=== PATIENT | male | born 1965 | race Caucasian/White ===

== ENCOUNTER → 2017-10-15 | Outpatient (CLI) | payer BC ==
[~2017-10-15] MED LIST: ECOTRIN81 M1 PO; Z MELATONIN PO; Z.4.AMLODIPINE-BEN1 PO
--- NOTE | 2017-10-15 11:59 | Diagnostic Imaging Report ---
PROCEDURE: X-RAY CHEST, TWO VIEWS COMPARISON: 09/10/2014. INDICATIONS: BRONCHITIS FINDINGS: LUNGS: No consolidations or edema. PLEURA: No effusions or pneumothorax. HEART \T\ MEDIASTINUM: The heart is within normal size-limits. BONES \T\ SOFT TISSUES: No acute findings. CONCLUSION: No acute thoracic abnormality. Dictated by: Deng Lee M.D. on 10/15/2017 at 11:59 Electronically approved by: Deng Lee M.D. on 10/15/2017 at 11:59
== END ==
LOC: RAD 11:23
PROVIDERS: ATTEND Family Medicine
DX: J40 Bronchitis, not specified as acute or chronic (principal)
CPT/HCPCS: 71046

== ENCOUNTER 2018-06-19 13:57 | Emergency (ER) | payer BC ==
[~2018-06-19] VITALS: Ht 170.2 cm; Wt 106.6 kg
--- OUTSIDE RECORDS SUMMARY | 2018-06-19 14:01 | XMS REPORT ---
Author Author [facility] Address Unknown Phone Unavailable Care Team Providers Care District Representative Name Role Phone DRU JOSE Unavailable Unavailable Problems This patient has no known problems. Allergies, Adverse Reactions, Alerts This patient has no known allergies or adverse reactions. Medications This patient has no known medications. Results Test Description Test Time Test Comments Text Results Atomic Results Result Comments CHEST 2 VIEWS [place] [address] Patient Name: DEB BUTLER MR #: [id number] : 1965 Age/Sex: 52/M Req #: [id number] Adm Physician: Ordered by: DRU ARRIAGA, JOSE Gandara MD Report #: [id number] Location: [facility] Room/Bed: Procedure: [id number] DX/CHEST 2 VIEWS Exam Date: Exam Time: REPORT STATUS: Signed PROCEDURE: X-RAY CHEST, TWO VIEWS COMPARISON: 09/10/2014. INDICATIONS: BRONCHITIS FINDINGS: LUNGS: No consolidations or edema. PLEURA: No effusions or pneumothorax. HEART T MEDIASTINUM: The heart is within normal size-limits. BONES T SOFT TISSUES: No acute findings. CONCLUSION: No acute thoracic abnormality. Dictated by: Bharathi Marcos M.D. on 10/15/2017 at 11:59 Electronically approved by: Bharathi Marcos M.D. on 10/15/2017 at 11:59 Dictated By: BHARATHI MARCOS MD [id number] Transcribed By: CHRIS on 10/15/17 1159 COPY TO: JOSE GONSALES MRI SPINE LUMBAR WO [place] [address] Patient Name: DEB BUTLER MR #: [id number] : 1965 Age/Sex: 51/M Req #: [id number] Adm Physician: Ordered by: DRU ARRIAGA, JOSE Gandara MD Report #: [id number] Location: MRI Room/Bed: Procedure: [id number] MRI/MRI SPINE LUMBAR WO Exam Date: 07/10/17 Exam Time: 0845 REPORT STATUS: Signed Exam: Lumbar spine MRI without IV contrast History: Lower back pain with radiculopathy. Comparison studies: None Technique: Sagittal and axial T2 , sagittal T1 and IR, axial spin density oblique. Intravenous contrast: None Findings: Number of lumbar vertebral bodies: 5. Alignment: Normal lordosis. Mild lumbar curvature convex to the left centered at L3. Soft tissues: No T2 hyperintense inflammatory changes. Paraspinal muscles: No signal abnormalities. Well-preserved. No atrophic changes Lower thoracic cord: Normal in signal and morphology. The tip of the conus is at T12-L1. Cauda equina: No masses. No arachnoiditis. Vertebrae: No compression fractures, infection or neoplasm. Degenerative changes: L1-L2: No abnormalities L2-L3: Disc bulge results in mild right greater than left foraminal stenosis. Disc bulge abuts the Patent canal. Small extraspinal synovial cyst at the left facet without synovitis. L3-L4: Mild bilateral foraminal stenosis due to a disc bulge. Patent canal and foramina. Small bilateral synovial cysts at the facet joints without synovitis. L4-L5: Mild bilateral foraminal stenosis due to a disc bulge and mild facet arthrosis. Patent canal. Small bilateral facet effusions with small extraspinal synovial cysts with mild synovitis. L5-S1: Disc bulge slightly asymmetric to the right with small right foraminal and left subarticular annular fissures and mild facet arthrosis with mild bilateral foraminal stenosis. No significant canal stenosis. Small right extraspinal synovial cyst at the right facet. Incidental findings: Subcentimeter T2 hyperintense right inferior pole renal cyst. IMPRESSION: 1. Small annular fissures at L5-S1. 2. Mild multilevel foraminal stenosis from L2 to S1. 3. No significant lumbar canal stenosis. 4. Mild L4-L5 facet arthrosis with mild synovitis. Signed by: Dr. Bharathi Banda M.D. on 07/10/2017 5:50 PM Dictated By: BHARATHI BANDA MD 49 Transcribed By: ANDRE on 07/10/171749 COPY TO: JOSE GONSALES
[2018-06-19] MEDS ORDERED: CYCLOBENZAPRINE10 MG PO (14:30)
[2018-06-19] MEDS ORDERED: HYDROCODONE/APAP 5MG-325MG TAB PO ONE (14:30)
[2018-06-19] MEDS ORDERED: CYCLOBENZAPRINE HCL 10 MG TAB PO ONE (14:30)
[2018-06-19] MEDS ORDERED: TYLENOL WITH C1 EACH PO (14:30)
--- NOTE | 2018-06-19 15:43 | Diagnostic Imaging Report ---
Radiographs of the left elbow - 3 views HISTORY: Pain COMPARISON: None available. FINDINGS: Bones: No acute displaced fracture. Osseous alignment is within normal limits. Joints: Mild scattered degenerative change. Soft tissues: Soft tissue swelling IMPRESSION: Soft tissue swelling about the left elbow. Signed by: Dr. Beau Smiley M.D. on 06/19/2018 3:40 PM
--- NOTE | 2018-06-19 15:44 | Diagnostic Imaging Report ---
Radiographs of the right hand - 3 views HISTORY: Pain COMPARISON: None available. FINDINGS: Bones: No acute displaced fracture. Osseous alignment is within normal limits. Joints: Mild scattered degenerative change. No osseous erosion. Soft tissues: Soft tissue swelling IMPRESSION: Soft tissue swelling about the right hand Signed by: Dr. Beau Smiley M.D. on 06/19/2018 3:40 PM
--- NOTE | 2018-06-19 15:52 | Diagnostic Imaging Report ---
Radiographs of the cervical spine - 5 views with bilateral obliques. HISTORY: Pain COMPARISON: None available. FINDINGS: Bones: No acute displaced fracture. Osseous alignment is within normal limits. Joints: Mild scattered degenerative change most pronounced at C5/6. There is associated uncovertebral hypertrophy and facet arthrosis with mild bilateral neural foraminal narrowing at these levels. Soft tissues: The soft tissues appear unremarkable. IMPRESSION: No fracture or dislocation is seen about the cervical spine. Soft tissue injury and subtle fracture could be further evaluated with MRI if clinically indicated Mild scattered degenerative change most pronounced at C5/6. There is associated uncovertebral hypertrophy and facet arthrosis with mild bilateral neural foraminal narrowing at these levels. Signed by: Dr. Beau Smiley M.D. on 06/19/2018 3:49 PM
[2018-06-19] MEDS ORDERED: BACITRACIN ZINC 0.9GM TP ONE (16:00)
== END 2018-06-19 16:35 | disposition home or self-care (01) ==
LOC: ER 13:57
DX: S16.1XXA Strain of muscle, fascia and tendon at neck level, initial encounter (principal); S60.511A Abrasion of right hand, initial encounter; S50.312A Abrasion of left elbow, initial encounter; S40.811A Abrasion of right upper arm, initial encounter; S40.812A Abrasion of left upper arm, initial encounter; V53.5XXA Driver of pick-up truck or van injured in collision with car, pick-up truck or van in traffic accident, initial encounter; Y93.89 Activity, other specified; Y92.410 Unspecified street and highway as the place of occurrence of the external cause; I10 Essential (primary) hypertension; I25.2 Old myocardial infarction; Z87.891 Personal history of nicotine dependence; Z82.49 Family history of ischemic heart disease and other diseases of the circulatory system
CPT/HCPCS: 72050; 99284

== ENCOUNTER → 2019-05-21 | Outpatient (CLI) | payer BC ==
[~2019-05-21] MED LIST changes: +CYCLOBENZAPRINE10 MG PO; +TYLENOL WITH C1 EACH PO
--- NOTE | 2019-05-21 12:09 | Diagnostic Imaging Report ---
Left shoulder, 2 views. History: Left shoulder pain for one week, trauma. Findings: The soft tissues are normal. Bone mineralization is normal. AC joint widening is noted measuring 13 mm. Coracoclavicular distance is within normal limits. There is no evidence of fracture or dislocation. There are no lytic or sclerotic lesions. The glenohumeral joint is within normal limits. IMPRESSION: Findings suggestive of Grade 1 AC joint separation. Signed by: Juan Hodges on 05/21/2019 12:06 PM
== END ==
LOC: RAD 10:47
PROVIDERS: ATTEND Family Medicine
DX: M25.512 Pain in left shoulder (principal); S49.92XA Unspecified injury of left shoulder and upper arm, initial encounter

== ENCOUNTER → 2021-04-14 | Outpatient (CLI) | payer BC ==
[~2021-04-14] MED LIST changes: +LORAZEPAM INJ 2 MG/ML VIAL ONE
== END ==
LOC: MRI 11:19
PROVIDERS: ATTEND Family Medicine
DX: S46.311A Strain of muscle, fascia and tendon of triceps, right arm, initial encounter (principal)
CPT/HCPCS: 73221; J2060

== ENCOUNTER 2021-04-26 20:55 | Emergency (ER) | payer BC ==
[~2021-04-26] VITALS: Ht 170.2 cm; Wt 106.6 kg
[~2021-04-26 20:55] MED LIST changes: -ACETAMINOPHEN/CODEINE 300MG - 30MG TAB ONE; -DEXAMETHASONE SOD PHOS INJ 4 MG/ML SDV ONE; -EPHEDRINE SULFATE INJ 50 MG/ML VIAL ONE; -FENTANYL CITRATE/PF 100MCG/2 ML INJ ONE; -GLYCOPYRROLATE INJ 0.2 MG/ML VIAL ONE; -HYDROMORPHONE 1MG/1ML INJ ONE; -KETOROLAC TROMETHAMINE 30 MG/ML VIAL ONE; -LIDOCAINE HCL 2% LOCAL INJ 5 ML SDV VIAL INJ ONE; -MORPHINE SULFATE INJ 2 MG/ML SYR ONE; -NEOSTIGMINE 1 MG/ML 10ML VIAL ONE; -ONDANSETRON HCL 4 MG ORAL DISINTEGRATING TAB ONE; -ONDANSETRON HCL INJ 2MG/ML 2ML 2 MG/ML VIAL ONE; -POVIDONE IODINE 0.05% 0.05 % ML PO ONE; -PROPOFOL IV EMULSION 10 MG/ML 20 ML VIAL ONE; -ROCURONIUM BROMIDE 10 MG/ML 5ML VIAL IV ONE; -SEVOFLURANE INHAL SOLN 250 ML PEN BTL ONE; -SODIUM CHLORIDE 0.9% 50ML 100 ML ONE
[2021-04-26 21:09] LABS: BASOPHILS % 0.2 % (0.0-1.0); HEMATOCRIT 42.1 % (38.2-49.6); HEMOGLOBIN 14.3 g/dL (14.0-18.0); LYMPHOCYTES # (AUTO) 1.1 (1.0-3.2); LYMPHOCYTES % 9.2 % (18.0-39.1); MEAN CORPUSCULAR HEMOGLOBIN 29.8 pg (28-32); MEAN CORPUSCULAR VOLUME 87.7 fL (81-99); MONOCYTES # (AUTO) 0.4 (0.2-0.8); NEUTROPHILS # (AUTO) 10.2 (2.1-6.9); NEUTROPHILS % 87.1 % (38.7-80.0); PLATELET COUNT 191 x10e3/uL (140-360); RED CELL DISTRIBUTION WIDTH 11.9 % (11.7-14.4)
[2021-04-26 21:18] LABS: INR 0.93; PROTHROMBIN TIME 12.7 seconds (11.9-14.5)
[2021-04-26 21:20] LABS: PARTIAL THROMBOPLASTIN TIME 21.3 seconds (23.8-35.5)
[2021-04-26 21:28] LABS: ALBUMIN 4.1 g/dL (3.5-5.0); ALBUMIN/GLOBULIN RATIO 1.4 (0.8-2.0); CALCIUM 8.9 mg/dL (8.4-10.2); CREATININE, SERUM 1.02 mg/dL (0.72-1.25)
[2021-04-26 21:34] LABS: CREATINE KINASE MB 1.6 ng/mL (0-5.0)
[2021-04-26] MEDS ORDERED: IOPAMIDOL 370 MG/ML 200 ML INFUS..BTL INJ ONE (22:05)
[2021-04-26] MEDS ORDERED: SODIUM CHLORIDE 0.9% 50ML 50 ML ONE (22:05)
[2021-04-27 00:56] VITALS: BP 134/76
== END 2021-04-27 00:25 | disposition home or self-care (01) ==
LOC: ER 20:59
DX: J18.9 Pneumonia, unspecified organism (principal); Z98.890 Other specified postprocedural states
CPT/HCPCS: 36415; 71260; 80053; 82550; 82553; 84484; 85025; 85610; 85730; 93005; 99283; Q9967

== ENCOUNTER → 2021-04-26 | Day surgery (SDC) | payer BC ==
[2021-04-25 11:48] LABS: ANION GAP 13.8 mmol/L (8-16); CALCIUM 8.5 mg/dL (8.4-10.2); CREATININE, SERUM 0.86 mg/dL (0.72-1.25); POTASSIUM 3.8 mmol/L (3.5-5.1)
[~2021-04-26] MED LIST changes: +ACETAMINOPHEN/CODEINE 300MG - 30MG TAB ONE; +ATORVASTATIN CA20 MG PO; +DEXAMETHASONE SOD PHOS INJ 4 MG/ML SDV ONE; +EPHEDRINE SULFATE INJ 50 MG/ML VIAL ONE; +FENTANYL CITRATE/PF 100MCG/2 ML INJ ONE; +GLYCOPYRROLATE INJ 0.2 MG/ML VIAL ONE; +HYDROMORPHONE 1MG/1ML INJ ONE; +HYZAAR 100-12.1 EACH; +ISOSORBIDE DINI20 MG PO; +KETOROLAC TROMETHAMINE 30 MG/ML VIAL ONE; +LIDOCAINE HCL 2% LOCAL INJ 5 ML SDV VIAL INJ ONE; -LORAZEPAM INJ 2 MG/ML VIAL ONE; +METOPROLOL SUCC25 MG PO; +MORPHINE SULFATE INJ 2 MG/ML SYR ONE; +NEOSTIGMINE 1 MG/ML 10ML VIAL ONE; +ONDANSETRON HCL 4 MG ORAL DISINTEGRATING TAB ONE; +ONDANSETRON HCL INJ 2MG/ML 2ML 2 MG/ML VIAL ONE; +POVIDONE IODINE 0.05% 0.05 % ML PO ONE; +PROPOFOL IV EMULSION 10 MG/ML 20 ML VIAL ONE; +ROCURONIUM BROMIDE 10 MG/ML 5ML VIAL IV ONE; +SEVOFLURANE INHAL SOLN 250 ML PEN BTL ONE; +SODIUM CHLORIDE 0.9% 50ML 100 ML ONE
[2021-04-26 14:45] VITALS: BP 124/75
== END | disposition home or self-care (01) ==
LOC: OR 07:56
PROVIDERS: ATTEND Specialist
DX: S46.391A Other injury of muscle, fascia and tendon of triceps, right arm, initial encounter (principal); I10 Essential (primary) hypertension; I25.10 Atherosclerotic heart disease of native coronary artery without angina pectoris; Z95.5 Presence of coronary angioplasty implant and graft; K21.9 Gastro-esophageal reflux disease without esophagitis; R00.1 Bradycardia, unspecified; W18.39XA Other fall on same level, initial encounter; Z01.810 Encounter for preprocedural cardiovascular examination; Z01.812 Encounter for preprocedural laboratory examination; Z20.822 Contact with and (suspected) exposure to COVID-19; Z79.82 Long term (current) use of aspirin
CPT/HCPCS: 24341; 36415; 80048; 93005; J0690; J1100; J1170; J1885; J2001; J2270; J2405; J2704; J2710; J3010; Q0162; U0002

== ENCOUNTER 2021-08-04 07:44 | Outpatient (RCR) | payer BC | END 2021-08-18 | LOC: OT 07:44 → EDSTATUS 15:27 | PROVIDERS: ATTEND Specialist | DX: S46.311A Strain of muscle, fascia and tendon of triceps, right arm, initial encounter (principal) ==

== ENCOUNTER 2021-08-23 08:30 | Outpatient (RCR) | payer BC | END 2021-09-18 | LOC: OT 08:30 | PROVIDERS: ATTEND Specialist | DX: S46.311A Strain of muscle, fascia and tendon of triceps, right arm, initial encounter (principal); R53.1 Weakness ==

== ENCOUNTER 2021-11-07 06:49 | Emergency (ER) | payer BC ==
[~2021-11-07] VITALS: Ht 170.2 cm; Wt 113.4 kg
[2021-11-07] MEDS ORDERED: ACETAMINOPHEN 325 MG TAB PO ONE (07:30)
[2021-11-07] MEDS ORDERED: CEFTRIAXONE 1 GM in SODIUM CHLORIDE 0.9% 50ML 50 ML IV ONE (07:30)
[2021-11-07 07:32] LABS: BASOPHILS # (AUTO) 0.1 (0.0-0.1); BASOPHILS % 0.5 % (0.0-1.0); EOSINOPHILS # (AUTO) 0.2 (0.0-0.4); EOSINOPHILS % 1.6 % (0.0-6.0); HEMATOCRIT 47.2 % (38.2-49.6); HEMOGLOBIN 16.2 g/dL (14.0-18.0); LYMPHOCYTES # (AUTO) 0.9 (1.0-3.2); LYMPHOCYTES % 8.1 % (18.0-39.1); MEAN CORPUSCULAR HEMOGLOBIN 29.9 pg (28-32); MEAN CORPUSCULAR HGB CONC 34.3 g/dL (31-35); MEAN CORPUSCULAR VOLUME 87.1 fL (81-99); MONOCYTES % 9.5 % (4.4-11.3); NEUTROPHILS # (AUTO) 8.3 (2.1-6.9); NEUTROPHILS % 79.6 % (38.7-80.0); PLATELET COUNT 183 x10e3/uL (140-360); RED BLOOD COUNT 5.42 x10e6/uL (4.3-5.7); RED CELL DISTRIBUTION WIDTH 12.8 % (11.7-14.4)
[2021-11-07 07:38] LABS: CLARITY,URINE CLEAR (CLEAR); COLOR,URINE YELLOW (YELLOW)
[2021-11-07 07:39] LABS: KETONES,URINE NEGATIVE (NEGATIVE); LEUKOCYTE ESTERASE ,URINE NEGATIVE (NEGATIVE); NITRITE,URINE NEGATIVE (NEGATIVE); PROTEIN,URINE DIPSTICK 2+ (NEGATIVE); URINE UROBILINOGEN 0.2 mg/dL (0.2 - 1)
[2021-11-07] MEDS ORDERED: ACETAMINOPHEN 325 MG TAB ONE (07:39)
[2021-11-07] MEDS ORDERED: CEFTRIAXONE 1 GM VIAL ONE (07:39)
[2021-11-07 07:51] LABS: BACTERIA,URINE RARE /HPF; EPITHELIAL CELLS,URINE RARE /LPF; WBC,URINE (MAN) 0-5 /HPF (0-5)
[2021-11-07 08:04] LABS: ALBUMIN 3.8 g/dL (3.5-5.0); ALBUMIN/GLOBULIN RATIO 1.4 (0.8-2.0); ANION GAP 12.7 mmol/L (8-16); CALCIUM 8.4 mg/dL (8.4-10.2); CREATININE, SERUM 0.94 mg/dL (0.72-1.25); POTASSIUM 3.7 mmol/L (3.5-5.1)
[2021-11-07] MEDS ORDERED: PHENAGIL TABLE1 EACH PO (09:14)
[2021-11-07] MEDS ORDERED: NAPROXEN250 MG PO (09:14)
[2021-11-07] MEDS ORDERED: TYLENOL325 MG PO (09:14)
[2021-11-07 09:35] VITALS: BP 119/52
== END 2021-11-07 09:36 | disposition home or self-care (01) ==
LOC: ER 07:37
DX: R50.9 Fever, unspecified (principal); A41.89 Other specified sepsis; R65.20 Severe sepsis without septic shock; J10.1 Influenza due to other identified influenza virus with other respiratory manifestations; I10 Essential (primary) hypertension; Z20.822 Contact with and (suspected) exposure to COVID-19; E78.5 Hyperlipidemia, unspecified; I25.10 Atherosclerotic heart disease of native coronary artery without angina pectoris; I25.2 Old myocardial infarction; Z95.5 Presence of coronary angioplasty implant and graft
CPT/HCPCS: 36415; 70450; 71045; 80053; 81001; 83605; 85025; 87040; 87086; 93005; 99284; J0696; U0002

== ENCOUNTER → 2022-09-19 | Day surgery (SDC) | payer BC ==
[2022-09-03 15:46] LABS: BASOPHILS # (AUTO) 0.1 (0.0-0.1); BASOPHILS % 0.6 % (0.0-1.0); EOSINOPHILS # (AUTO) 0.2 (0.0-0.4); EOSINOPHILS % 2.2 % (0.0-6.0); HEMATOCRIT 46.9 % (38.2-49.6); HEMOGLOBIN 15.1 g/dL (14.0-18.0); LYMPHOCYTES # (AUTO) 3.6 (1.0-3.2); LYMPHOCYTES % 37.8 % (18.0-39.1); MEAN CORPUSCULAR HEMOGLOBIN 28.7 pg (28-32); MEAN CORPUSCULAR HGB CONC 32.2 g/dL (31-35); MEAN CORPUSCULAR VOLUME 89.2 fL (81-99); MONOCYTES # (AUTO) 0.8 (0.2-0.8); MONOCYTES % 7.9 % (4.4-11.3); NEUTROPHILS # (AUTO) 4.9 (2.1-6.9); NEUTROPHILS % 51.2 % (38.7-80.0); PLATELET COUNT 198 x10e3/uL (140-360); RED BLOOD COUNT 5.26 x10e6/uL (4.3-5.7); RED CELL DISTRIBUTION WIDTH 12.3 % (11.7-14.4)
[2022-09-03 16:07] LABS: ANION GAP 15.5 mmol/L (8-16); CALCIUM 9.2 mg/dL (8.4-10.2); CREATININE, SERUM 1.15 mg/dL (0.72-1.25); POTASSIUM 3.5 mmol/L (3.5-5.1)
[~2022-09-19] MED LIST changes: +ALEVE220 M1 PO; +BUPIVACAINE HCL 0.5% INJ 30 ML VIAL INJ ONE; +CEFAZOLIN SODIUM 2 GM ONE; +DEXAMETHASONE SOD PHOS INJ 4 MG/ML SDV ONE; +EPHEDRINE SULFATE INJ 50 MG/ML VIAL ONE; +FENTANYL CITRATE/PF 100MCG/2 ML INJ ONE; +HYDROCODONE/APAP 5MG-325MG TAB ONE; -HYZAAR 100-12.1 EACH; +HYZAAR 100-12.1 EACH PO; +KETOROLAC TROMETHAMINE 30 MG/ML VIAL ONE; +LIDOCAINE HCL 2% LOCAL INJ 5 ML SDV VIAL INJ ONE; +NAPROXEN250 MG PO; +ONDANSETRON HCL INJ 2MG/ML 2ML 2 MG/ML VIAL ONE; +PHENAGIL TABLE1 EACH PO; +POVIDONE IODINE 0.05% 0.05 % ML PO ONE; +PROPOFOL IV EMULSION 10 MG/ML 20 ML VIAL ONE; +SEVOFLURANE INHAL SOLN 250 ML PEN BTL ONE; +TYLENOL325 MG PO
[2022-09-19 09:15] VITALS: BP 117/70
== END | disposition home or self-care (01) ==
LOC: OR 06:05
PROVIDERS: ATTEND Specialist
DX: M65.341 Trigger finger, right ring finger (principal); M19.041 Primary osteoarthritis, right hand; I10 Essential (primary) hypertension; I25.10 Atherosclerotic heart disease of native coronary artery without angina pectoris; E78.6 Lipoprotein deficiency; K57.90 Diverticulosis of intestine, part unspecified, without perforation or abscess without bleeding; Z01.812 Encounter for preprocedural laboratory examination; Z01.818 Encounter for other preprocedural examination; Z79.82 Long term (current) use of aspirin; Z79.899 Other long term (current) drug therapy; Z95.5 Presence of coronary angioplasty implant and graft; Z87.891 Personal history of nicotine dependence; Z86.16 Personal history of COVID-19
CPT/HCPCS: 26055; 36415; 71046; 80048; 85025; J1100; J1885; J2001; J2405; J2704; J3010